=== PATIENT | female | born 1975 | race Caucasian/White ===

== ENCOUNTER → 2016-08-20 | Outpatient (CLI) | payer BC ==
--- NOTE | 2016-08-20 19:20 | DI ---
MRI THORACIC SPINE SCAN, 08/20/2016 10:45 AM: Clinical History: Back pain without sciatica. Previous Exam: None. Technique: Sagittal T1 and T2 weighted and STIR scans are supplemented with an axial angulated T1 and T2 weighted scans between C7-T1 and the mid body of T12. The vertebral bodies are of normal height and size. The thoracic disc spaces are of normal height. Al l thoracic disc spaces show a normal signal pattern except for T3-4 and T4-5 where there is desiccati on change. The thoracic cord and the conus medullaris are normal. However, both cerebellar tonsils li e below the foramen magnum. There is right-sided tonsillar distended by 5 mm and on the left side it is 4 mm, indicating the patient has a type I Arnold-Chiari malformation. There are no extradural lesi ons. There are no intradural extramedullary or intramedullary lesions. Readin. The thoracic vertebral bodies are of normal height and the disc spaces are unremarkable except fo r mild desiccation change at T3-4 and T4-5. There is no extradural lesion and there is no intradural extramedullary lesion or intramedullary lesion. 2. Both cerebellar tonsils descend below the foramen magnum, 5 mm on the right side and 4 mm on the left side indicating a type I Arnold-Chiari malformation.
== END ==
LOC: MRI 10:40
PROVIDERS: ATTEND Nurse Practitioner Family
DX: M54.89 Other dorsalgia (principal); M51.34 Other intervertebral disc degeneration, thoracic region; G93.5 Compression of brain
CPT/HCPCS: 72146

== ENCOUNTER → 2016-08-21 | Outpatient (CLI) | payer BC ==
--- NOTE | 2016-08-22 18:16 | DI ---
MRI LUMBAR SPINE SCAN WITHOUT IV CONTRAST, 08/21/2016 8:54 AM: Clinical History: Back pain without sciatica. Previous Exam: None. Technique: Sagittal and axial T2 weighted; sagittal T1 weighted and T2 STIR; and axial PD. The vertebral bodies are of normal height and size. The disc spaces are of normal height and all disc spaces show mild desiccation change. The cord terminates at T12-L1. The conus medullaris is normal. The disc spaces from T11-12 through L4-5 are normal. L5-S1 has a central bulging but not herniated di sc without canal or neural foraminal stenosis. Readin. Bulging but not herniated disc without canal or neural foraminal stenosis at L5-S1. 2. The disc spaces from T11-12 through L4-5 are normal.
== END ==
LOC: MRI 08:50
PROVIDERS: ATTEND Nurse Practitioner Family
DX: M54.5 Low back pain (principal); M47.817 Spondylosis without myelopathy or radiculopathy, lumbosacral region
CPT/HCPCS: 72148